=== PATIENT | male | born 1965 | race Caucasian/White ===

== ENCOUNTER 2024-09-28 08:36 | Day surgery (SDC) | payer BC, SELFPAY ==
[2024-09-28] VITALS (8 sets, daily range): BP systolic 138–156; BP diastolic 77–88; PULSE 70–78; RESP 16–18; TEMP 36.5–36.7; O2SAT 95–98; BMI 29.2
[2024-09-28] MEDS: Lactated Ringers 1,000 ML 15 ML IV (09:31)
--- NOTE | 2024-09-28 09:37 | PRE.ANES_ITS ---
ASA Classification* ASA Classification ASA Classification: 2 Assessment & Plan Anesthesia* Anesthesia Assessment Anesthesia Assessment: Discussed sedation and/or anesthesia options, risks, benefits, and alternatives with patient/parents/legal guardian/POA. Questions invited. The patient/parents/legal guardian/POA seems to understand and agrees to proceed with anesthesia plan. Reviewed the physical assessment, medical history, allergy history and patient home medications list prior to surgery/procedure/anesthetic and documented any changes. Performed airway and anesthesia risk assessments. Anesthesia Type Anesthesia Type: General and Block (Patient is consented for brachial plexus block.) History Source History Obtained from:: Patient and Chart Anesthesia Focused Assessment* Temperature: 98.1 F Pulse Rate: 78 Blood Pressure: 143/84 Respiratory Rate: 18 Pulse Ox: 98 Oxygen Delivery Method: Room Air Airway Assessment Mouth opens: >3 cm Mallampati Score: IV Teeth Condition: Caps/Crowns (Patient has 2 crowns on left lower they are tight. Molars.) and Chipped/Broken (Right lower molar is cracked.) Neck Range of motion (ROM): Full ROM Labs Anesthesia Preop lab: CBC WBC 7.4 K/mm3 (4.4-11.0) 11/12/14 15:11/12/14 RBC 4.73 M/mm3 (4.6-6.2) 11/12/14 15:11/12/14 Hgb 15.4 g/dl (13.0-16.5) 11/12/14 15:06 11/12/14 Hct 43.1 % (40-54) 11/12/14 15:11/12/14 Plt Count 209 K/mm3 (150-450) 11/12/14 15:06 11/12/14 CHEMISTRY Potassium 4.1 mmol/L (3.5-5.1) 11/12/14 15:11/12/14 Sodium 137 mmol/L (136-145) 11/12/14 15:11/12/14 BUN 12 mg/dL (7-18) 11/12/14 15:06 11/12/14 Creatinine 1.11 mg/dL (0.70-1.30) 11/12/14 15:06 11/12/14 Glucose 88 mg/dL (70-110) 11/12/14 15:06 11/12/14 COAG Pre-Assessment Diagnosis/Proposed Procedure Planned Operative Procedure(s): LEFT DISTAL BICEPS TENDON REPAIR Anesthesia History 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 When Was Last Pacemaker Check QUESTION #4 FULL TEXT: You/Your Family Experience fever (hyperthermia) with Anesthesia Last Oral Intake Last Oral intake: Last Oral Intake NPO since 07:00 09/28/24 09:15 Meds taken in AM with sips of Yes 09/28/24 09:15 water? 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 supervisor Female No 09/26/24 09:29 HX of Motion Sickness Yes 09/26/24 09:29 HX of N/V After Surgery No 09/26/24 09:29 Non-Smoker No 09/26/24 09:29 Duration of Surgery greater Yes 09/26/24 09:29 than 60 minutes Number of Risk Factors 2 09/26/24 09:29 PONV Score Moderate Risk 09/26/24 09:29 Height & Weight Height & Weight: Anesthesia: Height & Weight Height 6 ft 09/28/24 09:15 Weight: 98 kg 09/28/24 09:15 Body Mass Index (BMI) 29.2 09/28/24 09:15 Respiratory Assessment Respiratory Assessment - solar panel installation supervisor: Respiratory Tract Infection Hx - solar panel installation supervisor Hx Respiratory Tract Infection No 09/26/24 09:29 STOP Sleep Apnea STOP Sleep Apnea - solar panel installation supervisor: STOP Sleep Apnea - solar panel installation supervisor Hx Hypertension Yes: CONTROLLED ON MED 09/26/24 09:29 Hx Sleep Apnea No 09/26/24 09:29 CPAP BIPAP Do you snore loudly (louder Yes 09/26/24 09:29 than talking or can be heard Do you often feel tired/ No 09/26/24 09:29 fatigued/ sleepy during daytime? Has anyone observed you stop No 09/26/24 09:29 breathing during sleep? STOP Results Positive 09/26/24 09:29 QUESTION #5 FULL TEXT : Do you snore loudly (louder than talking or can be heard through closed doors)? 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 Specify any problems Hx of Preganancy in last 3 N/A 09/26/24 09:29 Months Nurse Filling Out Transfusion VCHRISTIN 09/26/24 09:29 & Questions: Date: 09/26/24 09/26/24 09:29 Time: 09:31 09/26/24 09:29 Patient unable to answer at this time (ie. 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 panel installation supervisor: /Reproductive Hx- solar panel installation supervisor Hx Now No 09/26/24 09:29 Gestational Age (in weeks): EDC: Hx Hx Para Hx Section SAB No 09/26/24 09:29 Active Medications Active Medications: Current Medications Generic Name Dose Route Start Last Admin Trade Name Freq PRN Reason Stop Dose Admin Cefazolin Sodium 2 gm/ Sodium 110 mls @ 200 mls/hr 09/28/24 11:00 Chloride IV 09/28/24 11:32 INTRAOP ONE Lactated Ringer's 1,000 mls @ 15 mls/hr 09/28/24 09:00 09/28/24 09:31 IV 15 mls/hr .Q48H TAMELA Administration PFSH Medical History Wears glasses Alcohol use Gout Smoker Hypertension Cardiology follow-up encounter History of irregular heartbeat Home Medications ?Medication ?Instructions ?Recorded ?Last Taken ?Type allopurinol 300 mg tablet 300 mg PO DAILY 09/26/24 Unk nown History lisinopril 20 mg tablet 20 mg PO DAILY 09/26/24 Unkn own History metoprolol succinate 25 mg 25 mg PO DAILY 09/26/2401/13 History tablet,extended release 24 hr multivitamin (Daily Multi-Vitamin 1 tab PO DAILY 09/26 Unknown History tablet) vit C 30 mg-s.lemus 250 mg-celery 1 cap PO DAILY PRN 09/26/24 Unknown History seed 75 mg-grape seed extrt capsule (Tart Lemus) Allergy/AdvReac Type Severity Reaction Status Date / Time No Known Allergies Allergy Verified 09/28/24 09:15 Surgical History History of surgical removal of ganglion cyst Hx of Achilles tendon repair Hx of surgical procedure Social History Smoking Status: Current every day smoker (Patient did not smoke today.) tobacco type: cigarettes and smokeless tobacco Review of Systems (Anesthesia) ROS Narrative System reviewed and no additional complaints, except as documented.
[2024-09-28 09:40] LABS: Hematocrit 41.9 % (40-54); Hemoglobin 14.9 g/dL (13.0-16.5); Immature Granulocytes Count 0.030 X10^3/uL (0.0-0.0); Mean Corp Hgb Conc 35.6 g/dL (32-36); Mean Corpuscular Volume 91.5 fL (80-94); Mean Platelet Vol. 9.9 fl (6.2-12.0); NRBC Flagged by Analyzer 0 % (0-5); Platelet Count 145 K/mm3 (150-450); RBC Distribution Width CV 11.9 % (11.6-14.6); RBC Distribution Width SD 40.0 fl (35.1-43.9); Red Blood Count 4.58 M/mm3 (4.6-6.2); White Blood Count 6.2 K/mm3 (4.4-11.0)
--- NOTE | 2024-09-28 11:26 | PCM.POST.ANE ---
Anesthesia: Postop Eval I Current Vital Signs Temperature: 97.7 F Pulse Rate: 72 Blood Pressure: 156/86 Respiratory Rate: 16 Pulse Ox: 96 Oxygen Delivery Method: Room Air Assessment Airway patent: Yes Spontaneous unlabored respirations: Yes Mental status: Awake and Calm nausea: No Vomiting: No Anesthesia Complication: No Fluid Hydration Crystalloid volume administer (ml): 1,200 Total IV fluid infused: 1,200 Progress Note Anesthesia document: Postop Eval 1 completed: Yes
--- NOTE | 2024-09-28 16:28 | PCM.OPRPT ---
Operative Report (Standard) Operative Information Date of Procedure: 09/28/24 Pre-Operative Diagnosis: Left distal biceps tendon rupture Post-Operative Diagnosis: Left distal biceps tendon rupture Surgery/Procedure Performed: Left distal biceps tendon repair range rider: Yes Scouring Machine Tender: Nisreen Stephen Tasks completed by student assistant: Opening & closing, Implanting device and Hemostasis: Electrocautery Additional information technology assistant?: No Type of Anesthesia: General/Regional RN Documented Start/Stop Times: Operation Date: 09/28/24 10:30 Case Time Into Pre-Op 09/28/24 08:45 Anesthesia Start 09/28/24 10:08 Into Room 09/28/24 10:08 Out of Pre-Op 09/28/24 10:08 Procedure Start 09/28/24 10:27 Procedure End 09/28/24 11:13 Anesthesia End 09/28/24 11:19 Out of Room 09/28/24 11:19 Into Recovery 09/28/24 11:20 Into Phase II Recovery 09/28/24 11:51 Out of Recovery 09/28/24 11:51 Out of Phase II 09/28/24 12:20 Procedure Start Time: 10:27 Procedure Stop Time: 11:13 Select all DRAINS/GRAFTS/IMPLANTS that apply: Implanted device Implanted device details: Arthrex 7 mm tenodesis screw bio composite, Arthrex biceps button Estimated Blood Loss: 5 cc Specimen collected: No Description of surgery: Patient was seen in preoperative holding area. Patient was identified by name, medical record number, date of . The operative extremity was marked with a surgical marker. We confirmed informed consent with the patient and all questions were answered to the patient's satisfaction. At time of his procedure, patient was brought to the operative suite and positioned supine a standard operating table. All bony prominences were well-padded. General anesthesia was induced and endotracheal tube placed. The hand table attached to the left side of the table. We spun the bed 90 degrees. Well-padded pneumatic tourniquet was applied to the left upper arm. We then prepped and draped the left upper extremity in normal, sterile orthopedic fashion. 2 g Ancef was administered prior to incision by anesthesia staff. We performed a timeout at this point confirming side, site, and operation to be performed. No concerns voiced and elected to proceed. Left upper extremity was then exsanguinated with Esmarch bandage. Tourniquet was inflated 250 mmHg remained up for approximately 25 minutes. A oblique incision was made ulnar to brachial radialis approximately 2 cm distal to the elbow volar crease. Skin and subcutaneous tissue was dissected sharply with a 15 blade scalpel. I then bluntly dissected in the subcutaneous plane and identified the lateral antebrachial cutaneous nerve. This was protected throughout the case. I then bluntly dissected down to the level of the radial tuberosity. The distal biceps tendon was completely ruptured. I then bluntly dissected into the operative brachium and identified the distal biceps tendon which was milked into the wound and retrieved with an Allis clamp. I debrided the end of the tendon with significant mop ends and tendinosis noted. This was debrided to a healthy tendon stump. I then performed a whipstitch with a fiberloop suture. I then selected a point in the central portion of the radial tuberosity and drilled bicortically with a vendor supplied pin for the biceps button. I then utilized a 9 mm cannulated reamer to ream the near cortex of the radial tuberosity. I passed the sutures from the tendon through the biceps button sequentially. The ends of the suture were then passed through the distal portion of the tendon to eliminate creep in the distal tendon. The button was then passed bicortically, flipped to engage the far cortex of the radius. Tendon was able to be dunked nicely into the tenodesis site. Sutures were then tied over top of the tendon. I then placed a Bio-Tenodesis screw on the radial aspect of the tendon with excellent cortical purchase to reinforce the repair. Sutures were then cut proximal to the screw. The tourniquet was then deflated. Hemostasis was excellent. Dermis was reapproximated buried 3-0 Vicryl suture and skin was closed with running subcuticular 4-0 Monocryl with Dermabond. Sterile compression dressing and simple sling was then applied. Patient tolerated procedure well without apparent complication. Patient was transferred to PACU in stable condition. Need for skilled information technology assistant: Nisreen Stephen PA-C was critical to the outcome of the case. During the course of the procedure the physician information technology assistant played a vital role. Her intimate knowledge of my steps in the procedure aided in safe and expedient completion of the procedure. The PA played a vital role in positioning particularly in obtaining the appropriate positioning. The PA was also vital in the retraction of soft tissues during the exposure and protecting vital structures. She also played a vital role in closure with my direct supervision Post Operative Plan: Weightbearing: Nonweightbearing operative extremity, range of motion as tolerated Antibiotics: Ancef 2 g x 1 dose preoperatively DVT Prophylaxis: Aspirin 81 mg twice daily to start tomorrow for 2 weeks Wayne: None Dressing: Okay to shower on postoperative day #2. X-Rays: None Pain Medication: Oxycodone Rx upon discharge Follow-up: 2 weeks post-operatively with me in the office. Plan to initiate physical therapy at 2 weeks for range of motion. No strengthening until 6 weeks postoperatively. Surgical Findings: Complete rupture distal biceps tendon. Stable following fixation. Complications Complications: No Admit VTE Documentation VTE Present on Admission: No VTE Mechan Device Prophylaxis: SCD's VTE Pharm Prophylaxis ordered?: Yes
--- NOTE | 2024-09-28 21:29 | PCM.POSTANE2 ---
Anesthesia Postop Eval I Sum Postop Eval Completion status Anesthesia document: Postop Eval 1 completed: Yes Anesthesia Postop Eval I Summary Anesthesia Postop Eval I Summary: Anesthesia Postop Eval I: Assessment Summary Airway patent Yes 09/28/24 21:29 Spontaneous unlabored Yes 09/28/24 21:29 respirations Mental status Awake,Calm 09/28/24 21:29 nausea No 09/28/24 21:29 Vomiting No 09/28/24 21:29 Anesthesia Postop Eval I: Fluid Summary Crystalloid volume administer 1,200 09/28/24 21:29 (ml) Colloids volume administered ( ml) Blood Product volume administered (ml) Total IV fluid infused 1,200 09/28/24 21:29 Anesthesia Postop Eval I: Summary Notes Anesthesia Complication No 09/28/24 21:29 Anesthesia Complication Comment: Post-operative progress note Anesthesia: Postop Eval II Evaluation Mental status: Awake and Calm Pain Level: 1 nausea: No Vomiting: No Complications Anesthesia Complication: No
== END 2024-09-28 12:20 | disposition home or self-care (01) ==
LOC: SDC 08:43 → AC 08:44
PROVIDERS: PCP Family Medicine; Referring Provider Student in an Organized Health Care Education/Training Program; Visit Provider Student in an Organized Health Care Education/Training Program
PROC: (CPT 24341; principal; 2024-09-28 10:15)
DX: S46.212A Strain of muscle, fascia and tendon of other parts of biceps, left arm, initial encounter (principal); X58.XXXA Exposure to other specified factors, initial encounter; Y93.17 Activity, water skiing and wake boarding; I10 Essential (primary) hypertension; F17.210 Nicotine dependence, cigarettes, uncomplicated; F17.220 Nicotine dependence, chewing tobacco, uncomplicated; E66.9 Obesity, unspecified; Z68.30 Body mass index [BMI] 30.0-30.9, adult; Z79.899 Other long term (current) drug therapy
CPT/HCPCS: 24342; 64415; 01710; 85025; 93005; C1713; J2405